=== PATIENT | female | born 1985 | race Caucasian/White ===

== ENCOUNTER 2021-10-31 12:55 | Outpatient (CLI) | payer MEDICAID, SELFPAY ==
--- NOTE | 2021-10-31 13:06 | CTR_ITS ---
PROCEDURE INFORMATION: Exam: CT Neck With Contrast Exam date and time: 10/31/2021 1:20 PM Age: 35 years old Clinical indication: Neck pain; Prior surgery; Surgery type: Left side styloid removed; Patient HX: Dizziness, history of [place] syndrome. ; Additional info: Cervicalgia TECHNIQUE: Imaging protocol: Computed tomography of the neck with contrast. Radiation optimization: All CT scans at this facility use at least one of these dose optimization techniques: automated exposure control; mA and/or kV adjustment per patient size (includes targeted exams where dose is matched to clinical indication); or iterative reconstruction. Contrast material: OMNNIPAQUE 350; Contrast volume: 95 ml; Contrast route: INTRAVENOUS (IV); COMPARISON: CT cervical spin wo con* [id number] 08/12/2018 7:29 PM RADIATION DOSE METRICS: Total DLP (mGy-cm): 295.92 FINDINGS: Paranasal sinuses: Bilateral maxillary sinus disease identified. Similar on the left increased on the right since cervical spine CT. Pharynx: Unremarkable. No significant tonsillar enlargement. Larynx: Unremarkable. Epiglottis is normal. Prevertebral and retropharyngeal spaces: Unremarkable. Salivary glands: Normal. Glands are normal in size. Thyroid: Normal. No enlarged or calcified nodules. Lymph nodes: Numerous lymph nodes seen throughout the neck. They appear similar to the previous examination all non enlarged per size criteria the largest which is approximately 8 mm. Trachea: Visualized trachea is unremarkable. Lungs: Slight heterogenicity is noted of the lung edwards with a subtle ground-glass appearance. This could be due to a pneumonitis however, an inflammatory or infectious process cannot be excluded. Bones/joints: The history states left styloid removed however, I am seen the left styloid process however does appear discontinuous 4 7 mm segment image with a surgical clip adjacent to the inferior margin of the gap. A 2nd clip is seen in the left side of the floor of the mouth. Soft tissues: Unremarkable. No significant soft tissue swelling. CT/CT neck w con* [id number] IMPRESSION: No acute abnormality with postoperative changes in a piece of the left stone early process probably resected. The bulk of the styloid processes however, present.
[2021-10-31] MEDS: iohexol 350 mg/mL 100 mL Btl IV (13:27)
== END 2021-10-31 12:56 | disposition home or self-care (01) ==
LOC: RAD 12:56
PROVIDERS: PCP Physician Assistant; Visit Provider Physician Assistant
DX: M54.2 Cervicalgia (principal); R42 Dizziness and giddiness; R00.2 Palpitations
CPT/HCPCS: 70491

== ENCOUNTER 2022-02-13 09:12 | Outpatient (CLI) | payer MEDICAID, SELFPAY ==
--- NOTE | 2022-02-13 09:30 | CT_ITS ---
WS: [id number] CT ABDOMEN PELVIS TECHNIQUE: Noncontrast CT of the abdomen and pelvis with coronal and sagittal reformatted images. CLINICAL INFORMATION: CHRONIC ABDOMINAL PAIN COMPARISON: None. DLP: 1341.[address] scans at [facility] use at least one of these dose optimization techniques: automated e xposure control; mA and/or kV adjustment per patient size (includes targeted exams where dose is matc hed to clinical indication); or iterative reconstruction. FINDINGS: Lung bases are well aerated. Normal appendix in the RIGHT lower quadrant. Noncontrast liver is normal . Cholecystectomy clips. Normal GE junction. Noncontrast spleen is normal. Noncontrast pancreas is no rmal. Adrenal glands are normal. No hydronephrosis in either kidney. Tiny fat-containing umbilical hernia. Normal caliber abdominal aorta. Normal sigmoid colon. Nabothian cysts along the cervix. Slightly prominent LEFT ovary measuring 3.1 cm. This can be followed up with ultrasound. No abdominal or pelvic lymphadenopathy. CT/CT abdomen pelvis wo con [id number] IMPRESSION: 1. Prior cholecystectomy. 2. Normal appendix in the RIGHT lower quadrant. 3. No hydronephrosis in either kidney. 4. Normal caliber abdominal aorta. 5. Tiny fat-containing umbilical hernia. 6. Nabothian cysts along the cervix. Slightly prominent LEFT ovary measuring 3 .1 cm. This can be followed up with ultrasound. 7. No other suspicious findings.
[2022-02-13] MEDS: iohexol 350 mg/mL 100 mL Btl PO (10:24)
== END 2022-02-13 09:13 | disposition home or self-care (01) ==
LOC: RAD 09:13
PROVIDERS: PCP Physician Assistant; Visit Provider Nurse Practitioner Family
DX: G89.29 Other chronic pain (principal); Z90.49 Acquired absence of other specified parts of digestive tract; K42.9 Umbilical hernia without obstruction or gangrene; N88.8 Other specified noninflammatory disorders of cervix uteri
CPT/HCPCS: 74176; Q9967